=== PATIENT | female | born 1990 | race African-American/Black ===

== ENCOUNTER 2020-03-10 16:05 | Emergency (ER) | payer MEDICAID ==
[~2020-03-10] VITALS: Ht 167.6 cm; Wt 59.0 kg
--- NOTE | 2020-03-10 16:10 | NUR ---
PT BIBA RA 889 From Home "Lower abdominal Pain, Nausea" PT IS AAOX4, NOT IN RESPIRATORY DISTRESS, HOOKED TO MONITOR, KEPT RESTED AND COMFORTABLE, WILL CONTINUE TO MONITOR.
--- NOTE | 2020-03-10 16:15 | NUR ---
IV LINE ESTABLISHED BLOOD DRAWN AND SENT TO LAB.
--- NOTE | 2020-03-10 16:20 | NUR ---
SEEN AND EXAMINED BY .
--- NOTE | 2020-03-10 16:23 | NUR ---
URINAL GIVEN BUT UNABLE TO PROVIDE URINE SPECIMEN THIS TIME.
[2020-03-10] MEDS ORDERED: ONDANSETRON HCL/PF 4 MG/2 ML VIAL ONE (16:25)
[2020-03-10] MEDS ORDERED: KETOROLAC TROMETHAMINE 15 MG/ML VIAL ONE (16:27)
[2020-03-10] MEDS ORDERED: IV NS 0.9% 1,000 ML BAG IV ONE (16:30)
[2020-03-10] MEDS ORDERED: ONDANSETRON HCL/PF 4 MG/2 ML VIAL IVP ONE (16:30)
[2020-03-10] MEDS ORDERED: KETOROLAC TROMETHAMINE INJ 30 MG/ML VIAL IV ONE (16:30)
[2020-03-10 16:32] LABS: BASOPHILS % (AUTO) 0.4 % (0.0-2.0); EOSINOPHILS % (AUTO) 0.5 % (0.0-6.0); HEMATOCRIT 38 % (33-45); HEMOGLOBIN 12.9 g/dL (11.5-14.8); LYMPHOCYTES # (AUTO) 2.9 /CMM (0.8-4.8); LYMPHOCYTES % (AUTO) 60.7 % (20.0-44.0); MEAN CORPUSCULAR HGB CONC 34 g/dl (31.0-36.0); MEAN CORPUSCULAR VOLUME 97 fL (82-100); MONOCYTES # (AUTO) 0.3 /CMM (0.1-1.30); MONOCYTES % (AUTO) 6.5 % (2.0-12.0); NEUTROPHILS # (AUTO) 1.5 /CMM (1.8-8.9); NEUTROPHILS % (AUTO) 31.9 % (43.0-81.0); PLATELET COUNT (AUTO) 226 /CMM (150-450); RED BLOOD CELL COUNT(AUTO) 3.92 MIL/uL (4.0-5.2); WHITE BLOOD COUNT (AUTO) 4.8 K/uL (4.3-11.0)
[2020-03-10 16:38] LABS: CALCIUM, SERUM 9.3 mg/dL (8.5-10.1); CREATININE 0.7 mg/dL (0.6-1.3); POTASSIUM 3.5 mmol/L (3.5-5.1)
[2020-03-10 16:49] LABS: ALBUMIN 4.5 g/dL (3.4-5.0); BILIRUBIN,DIRECT 0.1 mg/dL (0.0-0.2); BILIRUBIN,TOTAL 0.3 mg/dL (0.2-1.0); TOTAL PROTEIN, SERUM 8.3 g/dL (6.4-8.2)
--- NOTE | 2020-03-10 16:50 | NUR ---
TECH AT BEDSIDE FOR US.
[2020-03-10 17:15] LABS: APPEARANCE,URINE Clear (CLEAR); BILIRUBIN,URINE Negative (NEGATIVE); BLOOD, URINE Negative Ery/uL (NEGATIVE); COLOR,URINE Yellow (YELLOW); KETONES,URINE Negative (NEGATIVE); LEUKOCYTE ESTERASE ,URINE Negative (NEGATIVE); NITRITE, URINE Negative (NEGATIVE); PROTEIN,URINE Negative (NEGATIVE); UGLUCOSE Negative (NEGATIVE); UROBILINOGEN,URINE 0.2 EU/dL (0.2)
[2020-03-10 17:54] VITALS: BP 122/66
--- NOTE | 2020-03-10 17:54 | NUR ---
IV removed. Catheter intact and site benign. Pressure and 4x4 applied to site. No bleeding noted. Patient discharged to home in stable condition. Written and verbal after care instructions given. Patient verbalizes understanding of instruction.
== END 2020-03-10 17:54 | disposition home or self-care (01) ==
LOC: ER 16:07
DX: R10.2 Pelvic and perineal pain (principal); R10.32 Left lower quadrant pain; R19.7 Diarrhea, unspecified
CPT/HCPCS: 36415; 76856; 80048; 80076; 81001; 84702; 85025; 96361; 96374; 96375; 99284; J1885; J2405; J7030; 81000-TC

== ENCOUNTER 2025-10-10 15:17 | Emergency (ER) | payer MEDICAID, OTHER ==
[~2025-10-10] VITALS: Ht 170.2 cm; Wt 70.3 kg
[2025-10-10 15:27] VITALS: BP 114/69; TEMP 98.2
[2025-10-10] MEDS ORDERED: IBUP-1953 PO (16:09)
[2025-10-10] MEDS ORDERED: IBUPROFEN 600 MG TABLET ONE (16:15)
[2025-10-10] MEDS: IBUPROFEN 600 MG TABLET PO ONE (16:16)
[2025-10-10 16:24] VITALS: O2SAT 98
== END 2025-10-10 16:25 | disposition home or self-care (01) ==
LOC: ER 15:24
DX: M77.9 Enthesopathy, unspecified (principal); M65.4 Radial styloid tenosynovitis [de Quervain]